=== PATIENT | male | born 1955 | race Caucasian/White ===

== ENCOUNTER 2025-05-06 14:12 | Inpatient (IN) | payer MEDICARE, MEDICAID ==
[~2025-05-06] VITALS: Ht 170.2 cm; Wt 59.9 kg
[~2025-05-06 14:12] MED LIST: AMLO10TA80 MT; ASPI-1497 PO; DOCU-422 MT; FAMO-135 MT; FLUT9.9S BOTHNSTRLS; HYDR-459 MT; MAGN250T29 MT; METH-819 MT; ONDA4TAB50 MT; PROP10TA10 MT; ROSU20TA2 PO; SERT-422 MT; TAMS-54 MT; TERA1CAP54 PO
[2025-05-06 14:19] VITALS: O2SAT 99
[2025-05-06] MEDS ORDERED: ONDANSETRON HCL 4MG/2ML INJ IV ONE (14:30)
[2025-05-06] MEDS ORDERED: FAMOTIDINE 20MG TABLET PO ONE (14:30)
[2025-05-06 15:38] LABS: HEMATOCRIT. 44.0 % (42.0-52.0); HEMOGLOBIN. 14.7 g/dL (14.0-18.0); MEAN PLATELET VOLUME 8.4 fl (7.4-10.4); PLATELET 174 x1000/uL (130-400); RED BLOOD CELL COUNT 5.22 mill/uL (4.7-6.1); RED CELL DISTRIBUTION WIDTH 17.2 % (11.6-14.6)
[2025-05-06 15:53] LABS: CREATININE 0.9 mg/dL (0.6-1.3); UREA NITROGEN BLOOD 12 mg/dL (9-23)
[2025-05-06 15:55] LABS: ASPARTATE AMINOTRANSFERASE 15 IU/L (<34); BILIRUBIN DIRECT 0.2 mg/dL (<=3.0); BILIRUBIN TOTAL 0.7 mg/dL (0.1-1.0); PROTEIN TOTAL 7.6 g/dL (6.0-8.3)
[2025-05-06 16:02] LABS: LYMPHOCYTES % MANUAL 3.0 % (20.0-50.0); MONOCYTES % MANUAL 2.0 % (2.0-8.0); NEUTROPHILS % MANUAL 95.0 % (45.0-75.0); PLATELET ESTIMATE NORMAL
[2025-05-06] MEDS: ONDANSETRON HCL 4MG/2ML INJ IV SCH (17:02)
[2025-05-06] MEDS: FAMOTIDINE 20MG TABLET PO SCH (17:02)
[2025-05-06] MEDS: SODIUM CHLORIDE 0.9% 1,000 ML IV ONE (17:03)
[2025-05-06 20:53] LABS: CLARITY URINE CLEAR (CLEAR); COLOR URINE YELLOW (YELLOW); GLUCOSE URINE NEGATIVE (NEGATIVE); KETONES URINE 2+ (NEGATIVE); LEUKOCYTE ESTERASE URINE NEGATIVE (NEGATIVE); NITRITE URINE NEGATIVE (NEGATIVE); OCCULT BLOOD URINE TRACE (NEGATIVE); PH URINE 8.5 (4.5-8.0); PROTEIN URINE 1+ (NEGATIVE); SPECIFIC GRAVITY URINE 1.015 (1.005-1.030); UROBILINOGEN URINE 1.0 E.U./dL (0.2-1.0)
[2025-05-06 21:12] LABS: WBC URINE 0-2 /hpf (0-2)
[2025-05-06 21:13] LABS: BACTERIA URINE TRACE; SQUAMOUS EPITHELIAL CELL URINE FEW /lpf (RARE/1+)
[2025-05-06] MEDS ORDERED: ONDA-239 PO (22:04)
[2025-05-06] MEDS: IOHEXOL-300 100 ML BOTTLE ONE (23:43)
[2025-05-07 01:00] VITALS: BP 130/78; PULSE 61; RESP 17; TEMP 36.418
[2025-05-07] MEDS ORDERED: DEXT 5%/0.45% NACL KCL 40MEQ/L 1,000 ML IV ONE (02:00)
[2025-05-07] MEDS ORDERED: HYDROCODONE/ACETAMINOPHEN 5/325MG TABLET PO PRN (02:00)
[2025-05-07] MEDS ORDERED: NALOXONE HCL 0.4MG/ML VIAL IV PRN (02:30)
[2025-05-07] MEDS: KCL 20MEQ/100ML X 2 FOR TOTAL KCL 40MEQ/200ML IV SCH (02:59)
[2025-05-07] MEDS: ONDANSETRON HCL 4MG/2ML INJ IV PRN (03:00)
[2025-05-07] MEDS: TEMAZEPAM 15MG CAPSULE PO PRN (03:00)
[2025-05-07] MEDS ORDERED: DEXT 5%/0.45% NACL 1000ML 1,000 ML IV SCH (06:30)
[2025-05-07] MEDS: PANTOPRAZOLE 40MG DR TABLET PO SCH (07:46)
[2025-05-07] MEDS: ONDANSETRON HCL 4MG TABLET PO PRN (07:46)
[2025-05-07] MEDS: POTASSIUM CHLORIDE 20MEQ TABLET SR PO NR (07:46)
[2025-05-07 08:00] VITALS: BP 144/69; PULSE 65; RESP 19; TEMP 36.4; O2SAT 96
[2025-05-07] MEDS ORDERED: PANTOPRAZOLE SODIUM 40 MG/VIAL IV SCH (09:00)
[2025-05-07] MEDS: METHADONE HCL 10MG TABLET PO SCH (10:18)
[2025-05-07 12:00] VITALS: BP 134/81; PULSE 67; RESP 19; TEMP 36.3; O2SAT 96
[2025-05-07] MEDS: ALPRAZOLAM 0.25 MG TABLET PO PRN (12:08)
[2025-05-07 16:00] VITALS: BP 107/77; PULSE 60; RESP 17; TEMP 35.9; O2SAT 95
[2025-05-07 20:00] VITALS: BP 124/63; PULSE 80; RESP 20; TEMP 36.3; O2SAT 99
[2025-05-07 20:40] LABS: BASOPHILS % 0.6 % (0.0-2.0); EOSINOPHILS % 1.0 % (0.0-5.0); HEMATOCRIT. 42.3 % (42.0-52.0); HEMOGLOBIN. 14.0 g/dL (14.0-18.0); LYMPHOCYTES % 27.0 % (20.0-50.0); MEAN PLATELET VOLUME 8.9 fl (7.4-10.4); MONOCYTES % 7.2 % (2.0-8.0); NEUTROPHILS % 64.2 % (40.0-76.0); PLATELET 173 x1000/uL (130-400); RED BLOOD CELL COUNT 4.98 mill/uL (4.7-6.1); RED CELL DISTRIBUTION WIDTH 17.6 % (11.6-14.6)
[2025-05-07 21:03] LABS: CREATININE 0.8 mg/dL (0.6-1.3)
[2025-05-07 21:04] LABS: UREA NITROGEN BLOOD 10 mg/dL (9-23)
[2025-05-07 21:05] LABS: ASPARTATE AMINOTRANSFERASE 16 IU/L (<34)
[2025-05-07 21:06] LABS: BILIRUBIN DIRECT 0.2 mg/dL (<=3.0); BILIRUBIN TOTAL 0.8 mg/dL (0.1-1.0); PROTEIN TOTAL 6.7 g/dL (6.0-8.3)
[2025-05-08] VITALS: BP 118/63; PULSE 76; RESP 20; TEMP 36.1; O2SAT 99
[2025-05-08 04:00] VITALS: BP 123/64; PULSE 82; RESP 20; TEMP 36.7; O2SAT 99
[2025-05-08 08:00] VITALS: BP 130/64; PULSE 64; RESP 18; TEMP 36.7; O2SAT 95
[2025-05-08] MEDS: POTASSIUM CHLORIDE 20MEQ TABLET SR PO NR (08:56)
[2025-05-08] MEDS: METHADONE HCL 5MG TABLET PO SCH (08:58)
[2025-05-08] MEDS: METHADONE HCL 10MG TABLET PO SCH (09:05)
[2025-05-08 12:00] VITALS: BP 127/78; PULSE 74; RESP 17; TEMP 36.2; O2SAT 97
[2025-05-08] MEDS: SERTRALINE HCL 50MG TABLET PO SCH (13:37)
[2025-05-08 16:00] VITALS: BP 111/69; PULSE 68; RESP 18; TEMP 36.5; O2SAT 96
[2025-05-08] MEDS: METOCLOPRAMIDE HCL 10MG/2ML VIAL IV SCH (18:00)
[2025-05-08 20:00] VITALS: BP 112/73; PULSE 68; RESP 18; TEMP 36.6; O2SAT 98
[2025-05-09] VITALS: BP 108/63; PULSE 53; RESP 18; TEMP 36.3; O2SAT 95
[2025-05-09 07:35] LABS: CREATININE 1.1 mg/dL (0.6-1.3); UREA NITROGEN BLOOD 17 mg/dL (9-23)
[2025-05-09 07:37] LABS: ASPARTATE AMINOTRANSFERASE 12 IU/L (<34); BILIRUBIN TOTAL 1.0 mg/dL (0.1-1.0); PROTEIN TOTAL 7.2 g/dL (6.0-8.3)
[2025-05-09 08:00] VITALS: BP 137/84; PULSE 76; RESP 19; TEMP 36.5; O2SAT 98
[2025-05-09 12:00] VITALS: BP 102/69; PULSE 71; RESP 18; TEMP 36.4; O2SAT 98
[2025-05-09 16:00] VITALS: BP 124/70; PULSE 61; RESP 18; TEMP 36.4; O2SAT 97
[2025-05-09] MEDS: DOCUSATE SODIUM 250MG CAPSULE PO SCH (18:23)
[2025-05-09] MEDS: POLYETHYLENE GLYCOL 3350 (17GM) 1 DOSE PACK PO SCH (18:24)
[2025-05-09 20:00] VITALS: BP 118/78; PULSE 62; RESP 18; TEMP 36.3; O2SAT 97
[2025-05-10] VITALS: BP 112/64; PULSE 63; RESP 17; TEMP 36.2; O2SAT 97
[2025-05-10 04:00] VITALS: BP 127/66; PULSE 59; RESP 15; TEMP 36.3; O2SAT 99
[2025-05-10] MEDS: SENNOSIDES 8.6MG TABLET PO NR (04:34)
[2025-05-10] MEDS: PANTOPRAZOLE 40MG DR TABLET PO SCH (06:42)
[2025-05-10 08:00] VITALS: BP 120/77; PULSE 78; RESP 18; TEMP 36.4; O2SAT 100
[2025-05-10] MEDS ORDERED: FAMOTIDINE 20MG TABLET PO SCH (09:00)
[2025-05-10] MEDS ORDERED: PANT40TA51 PO (11:17)
[2025-05-10] MEDS ORDERED: ONDA4TAB50 PO (11:17)
[2025-05-10 11:33] VITALS: BP 120/77; PULSE 78; RESP 18; TEMP 97.9
[2025-05-10 11:39] LABS: CREATININE 1.1 mg/dL (0.6-1.3); UREA NITROGEN BLOOD 19 mg/dL (9-23)
[2025-05-10 12:00] VITALS: BP 114/75; PULSE 77; RESP 19; TEMP 36.2; O2SAT 95
[2025-05-10 14:30] LABS: BASOPHILS % 0.4 % (0.0-2.0); EOSINOPHILS % 0.3 % (0.0-5.0); HEMATOCRIT. 47.5 % (42.0-52.0); HEMOGLOBIN. 15.4 g/dL (14.0-18.0); LYMPHOCYTES % 20.8 % (20.0-50.0); MEAN PLATELET VOLUME 9.5 fl (7.4-10.4); MONOCYTES % 6.6 % (2.0-8.0); NEUTROPHILS % 71.9 % (40.0-76.0); PLATELET 196 x1000/uL (130-400); RED BLOOD CELL COUNT 5.56 mill/uL (4.7-6.1); RED CELL DISTRIBUTION WIDTH 17.5 % (11.6-14.6)
== END 2025-05-10 11:50 | disposition home or self-care (01) | DRG 887 ==
LOC: ER 14:12 → 6EST 23:48 → EDBEDREQTM 23:51 → EDBEDREQ 23:51 → ENRESERV 05-07 00:03
PROVIDERS: ADMIT Internal Medicine; ATTEND Internal Medicine
DX: F50.89 Other specified eating disorder (principal); C85.9A Non-Hodgkin lymphoma, unspecified, in remission; R10.84 Generalized abdominal pain; E87.6 Hypokalemia; K21.9 Gastro-esophageal reflux disease without esophagitis; F41.1 Generalized anxiety disorder; F39 Unspecified mood [affective] disorder; I10 Essential (primary) hypertension; K57.30 Diverticulosis of large intestine without perforation or abscess without bleeding; N28.1 Cyst of kidney, acquired; F17.210 Nicotine dependence, cigarettes, uncomplicated; K59.00 Constipation, unspecified; F32.A Depression, unspecified; Z68.20 Body mass index [BMI] 20.0-20.9, adult; Z79.82 Long term (current) use of aspirin; Z79.899 Other long term (current) drug therapy
CPT/HCPCS: 36415; 74018; 74177; 80048; 80053; 80076; 81003; 83036; 83605; 84153; 85025; 96374; 99285; J2405; J2765; J3480; J7030; Q0162; Q9967